=== PATIENT | female | born 1995 | race Two or more races ===

== ENCOUNTER 2024-08-10 16:09 | Emergency (ER) | payer OTHER ==
[~2024-08-10] VITALS: Ht 157.5 cm; Wt 73.5 kg
[2024-08-10] MEDS ORDERED: PRENATE ELITE1 EAC2 (17:15)
[2024-08-10 17:50] LABS: BASO % 0.5 % (0.1-1.2); EOS # 0.08 (0.04-0.54); EOS % 0.9 % (0.7-7.0); HEMATOCRIT 34.3 % (34.1-44.9); HEMOGLOBIN 10.7 g/dL (11.2-15.7); LYMPH # 1.96 (1.18-3.74); LYMPH % 22.7 % (19.3-53.1); MEAN CORPUSCULAR HEMOGLOBIN 23.7 pg (25.6-32.2); MONO # 0.93 (0.24-0.82); MONO % 10.8 % (4.7-12.5); NEUT # 5.62 (1.56-6.13); NEUT % 64.9 % (34.0-71.1); PLATELET COUNT 356 K/uL (163-369); RED BLOOD COUNT 4.52 M/uL (3.93-5.22); RED CELL DISTRIBUTION WIDTH 22.7 % (11.6-14.4)
== END 2024-08-10 19:36 | disposition home or self-care (01) ==
LOC: ER 16:09
PROVIDERS: General Practice
DX: O20.9 Hemorrhage in early pregnancy, unspecified (principal); Z3A.12 12 weeks gestation of pregnancy

== ENCOUNTER 2024-08-20 04:07 | Emergency (ER) | payer OTHER ==
[~2024-08-20] VITALS: Ht 157.5 cm; Wt 72.1 kg
[~2024-08-20 04:07] MED LIST: PRENATE ELITE1 EAC2
[2024-08-20] MEDS ORDERED: SYNTHROID125 MCG (04:30)
[2024-08-20] MEDS ORDERED: RINGERS SOLUTION,LACTATED 1,000 ML IV ONE (04:45)
[2024-08-20 04:56] LABS: BASO % 0.5 % (0.1-1.2); EOS # 0.08 (0.04-0.54); EOS % 1.1 % (0.7-7.0); HEMATOCRIT 35.1 % (34.1-44.9); HEMOGLOBIN 11.4 g/dL (11.2-15.7); LYMPH # 1.81 (1.18-3.74); LYMPH % 23.9 % (19.3-53.1); MONO # 0.76 (0.24-0.82); MONO % 10.1 % (4.7-12.5); NEUT # 4.86 (1.56-6.13); NEUT % 64.3 % (34.0-71.1); PLATELET COUNT 285 K/uL (163-369); RED BLOOD COUNT 4.56 M/uL (3.93-5.22); RED CELL DISTRIBUTION WIDTH 23.1 % (11.6-14.4)
[2024-08-20 05:15] LABS: INR 0.94; PARTIAL THROMBOPLASTIN TIME 25.7 SECONDS (22.0-34.0); PROTHROMBIN TIME 10.3 SECONDS (9.0-11.5)
[2024-08-20 05:46] LABS: CALCIUM 9.1 mg/dL (8.5-10.1); CREATININE SERUM 0.45 mg/dL (0.55-1.02); GFR 164.73; POTASSIUM 3.6 mEq/L (3.5-5.1)
[2024-08-20 06:27] LABS: URINE APPEARANCE Clear; URINE BILIRRUBIN Negative (NEGATIVE); URINE BLOOD Negative; URINE COLOR Yellow; URINE GLUCOSE Negative (NEGATIVE); URINE KETONE Negative (NEGATIVE); URINE LEUKOCYTE Negative; URINE NITRATE Negative; URINE PROTEIN Negative (NEGATIVE); URINE UROBILINOGEN 0.2 E.U./dl
[2024-08-20 06:31] LABS: URINE BACTERIA 893.4 uL (0.0-1933); URINE EPITHELIAL CELLS 26.1 uL (0.0-38.8); URINE RBC 12.9 uL (0.0-20.8); URINE WBC 16.1 uL (0.0-23.2)
== END 2024-08-20 07:49 ==
LOC: ER 04:25
PROVIDERS: General Practice
DX: O20.8 Other hemorrhage in early pregnancy (principal); Z3A.14 14 weeks gestation of pregnancy; E03.8 Other specified hypothyroidism

== ENCOUNTER 2025-02-12 13:00 | Inpatient (IN) | payer OTHER ==
[~2025-02-12] VITALS: Ht 160 cm; Wt 90.7 kg
[~2025-02-12 13:00] MED LIST changes: +SYNTHROID125 MCG
[2025-02-19] VITALS (8 sets, daily range): BP systolic 125–142; BP diastolic 56–76
[2025-02-19] MEDS ORDERED: RINGERS SOLUTION,LACTATED 1,000 ML IV SCH (05:30)
[2025-02-19 06:55] LABS: BASO % 0.4 % (0.1-1.2); EOS # 0.09 (0.04-0.54); EOS % 1.2 % (0.7-7.0); LYMPH # 2.05 (1.18-3.74); LYMPH % 26.9 % (19.3-53.1); MEAN PLATELET VOLUME 10.40 fl (9.4-12.4); MONO # 0.78 (0.24-0.82); MONO % 10.2 % (4.7-12.5); NEUT # 4.64 (1.56-6.13); NEUT % 60.8 % (34.0-71.1); RED CELL DISTRIBUTION WIDTH 13.5 % (11.6-14.4)
[2025-02-19] MEDS ORDERED: OXYTOCIN 500 ML IV SCH (07:00)
[2025-02-19 07:06] LABS: URINE APPEARANCE Clear; URINE BILIRRUBIN Negative (NEGATIVE); URINE BLOOD Negative; URINE COLOR Yellow; URINE GLUCOSE Negative (NEGATIVE); URINE KETONE Negative (NEGATIVE); URINE LEUKOCYTE Negative; URINE NITRATE Negative; URINE PROTEIN Negative (NEGATIVE); URINE UROBILINOGEN 0.2 E.U./dl
[2025-02-19 07:07] LABS: URINE BACTERIA 101.7 uL (0.0-1933); URINE EPITHELIAL CELLS 10.8 uL (0.0-38.8)
[2025-02-19 07:11] LABS: URINE CAST 0.00 uL (0.0-1.40); URINE RBC 0.8 uL (0.0-20.8); URINE WBC 0.9 uL (0.0-23.2)
[2025-02-19 07:14] LABS: INR 0.94
[2025-02-19 07:33] LABS: ALT/SGPT 46.0 U/L (12-78); AST/SGOT 24.0 U/L (15-37); BILIRUBIN TOTAL 0.26 mg/dL (0.3-1.2); BUN CREA RATIO 13.0 (7.0-25.0); CREATININE SERUM 0.55 mg/dL (0.55-1.02); GFR 129.78; GLOBULINA 3.8 G/DL (2.4-3.5); GLUCOSE FASTING 75.0 mg/dL (65-100); OSMOLALITY SERUM 276.0 MOSM/KG (275-295); TSH 1.24 uIU/mL (0.358-3.74)
[2025-02-19] MEDS ORDERED: MORPHINE SULFATE 4 MG/ML VIAL IV STA (11:43)
[2025-02-19] MEDS ORDERED: MORPHINE SULFATE 2 MG/ML SYRINGE IV STA ×2 (16:08→16:09)
[2025-02-19] MEDS ORDERED: MORPHINE SULFATE 4 MG/ML VIAL IV PRN (16:15)
[2025-02-19] MEDS ORDERED: CHLORHEXIDINE GLUCONATE 120 ML BOTTLE TOP ONE ×2 (17:53→20:30)
[2025-02-19] MEDS ORDERED: LIDOCAINE HCL 1% 10ML VIAL ONE (17:53)
[2025-02-19] MEDS ORDERED: OXYTOCIN 20 UNITS/1000ML RL PIGGYBAG IV ONE (17:53)
[2025-02-19] MEDS ORDERED: ERYTHROMYCIN BASE OPHT 1GM EACH TUBE OP ONE ×2 (17:53→20:30)
[2025-02-19] MEDS ORDERED: OXYTOCIN 1,000 ML IV SCH (20:30)
[2025-02-19] MEDS ORDERED: LIDOCAINE HCL 1% 10ML VIAL IJ ONE (20:30)
[2025-02-19] MEDS ORDERED: ACETAMINOPHEN 500 MG GEL..CAP PO PRN (20:30)
[2025-02-20] VITALS: BP 132/77
[2025-02-20 01:43] LABS: BASO % 0.1 % (0.1-1.2); EOS # 0.00 (0.04-0.54); EOS % 0.0 % (0.7-7.0); LYMPH # 0.91 (1.18-3.74); LYMPH % 4.4 % (19.3-53.1); MEAN PLATELET VOLUME 10.20 fl (9.4-12.4); MONO # 0.99 (0.24-0.82); MONO % 4.8 % (4.7-12.5); NEUT # 18.71 (1.56-6.13); NEUT % 90.2 % (34.0-71.1); RED CELL DISTRIBUTION WIDTH 13.4 % (11.6-14.4)
[2025-02-20 08:12] VITALS: BP 126/80
[2025-02-20] MEDS ORDERED: HYDROCORTISONE 2.5% 30 GM TUBE RECTAL SCH (09:00)
[2025-02-20] MEDS ORDERED: BENZOCAINE/MENTHOL 90 ML BOTTLE TOP SCH (09:00)
[2025-02-20 18:06] VITALS: BP 103/70
[2025-02-21 02:13] VITALS: BP 106/66
[2025-02-21 09:00] VITALS: BP 124/77
== END 2025-02-21 13:00 | disposition home or self-care (01) | DRG 807 ==
LOC: OB/GYN 02-19 05:11 → LDR 02-19 05:11 → OB/GYN 02-19 21:16
PROVIDERS: ADMIT Specialist; ATTEND Specialist
PROC: 10E0XZZ Delivery of Products of Conception, External Approach (ICD-10-PCS; principal; 2025-02-19)
PROC: 0KQM0ZZ Repair Perineum Muscle, Open Approach (ICD-10-PCS; 2025-02-19)
PROC: 0W8NXZZ Division of Female Perineum, External Approach (ICD-10-PCS; 2025-02-19)
PROC: 3E033VJ Introduction of Other Hormone into Peripheral Vein, Percutaneous Approach (ICD-10-PCS; 2025-02-19)
PROC: 4A1HXCZ Monitoring of Products of Conception, Cardiac Rate, External Approach (ICD-10-PCS; 2025-02-19)
DX: O70.1 Second degree perineal laceration during delivery (principal); O48.0 Post-term pregnancy; Z37.0 Single live birth; Z3A.40 40 weeks gestation of pregnancy